=== PATIENT | male | born 1975 | race Caucasian/White ===

== ENCOUNTER 2019-05-04 18:00 | Emergency (ER) | payer OTHER | END 2019-05-04 19:42 | LOC: E/R 18:00 | DX: S62.515A Nondisplaced fracture of proximal phalanx of left thumb, initial encounter for closed fracture (principal); X58.XXXA Exposure to other specified factors, initial encounter; Y92.9 Unspecified place or not applicable; Z01.818 Encounter for other preprocedural examination | CPT/HCPCS: 29125; 73110-LT; 73130-50; 99284-25 ==